=== PATIENT | female | born 1995 | race Caucasian/White ===

== ENCOUNTER 2019-03-11 08:57 | Inpatient (IN) ==
[2019-03-11] MEDS ORDERED: Naloxone 0.4 MG/ML INJ IVP PRN (10:01)
[2019-03-11] MEDS ORDERED: *HR* Nalbuphine 10 MG/ML AMPUL IVP PRN (10:01)
[2019-03-11] MEDS ORDERED: Metoclopramide 10 MG/2 ML VIAL IVP PRN (10:01)
[2019-03-11] MEDS ORDERED: Ondansetron 4 MG/2 ML VIAL IVP PRN (10:01)
[2019-03-11] MEDS ORDERED: Famotidine 20 MG/2 ML VIAL IVP PRN (10:01)
[2019-03-11] MEDS ORDERED: Ringers Solution, Lactated 1,000 ML IVC SCH (10:15)
[2019-03-11 11:01] LABS: Basophils # 0.1 K/mcL (0.0-0.2); Basophils % 0.4 %; Eosinophils % 0.2 %; Hematocrit 33.5 % (35.3-44.9); Hemoglobin 11.5 g/dL (11.5-15.4); Immature Granulocytes % 0.5 % (0-4); Lymphocytes # 2.5 K/mcL (0.6-4.6); Lymphocytes % 20.4 %; Mean Corpuscular HGB Conc 34.3 g/dL (31.6-35.5); Mean Corpuscular Hemoglobin 30.5 pg (28.0-33.3); Mean Corpuscular Volume 88.9 fL (83.0-100.0); Mean Platelet Volume 10.6 fL (9.4-12.4); Monocytes # 0.7 K/mcL (0.0-1.3); Monocytes % 6.1 %; Neutrophils # 8.8 K/mcL (1.6-8.9); Platelet Count 290 K/mcL (140-400); Red Blood Count 3.77 M/mcL (3.82-4.97); Red Cell Distribution Width 13.6 % (11.5-14.5); Segmented Neutrophils % 72.4 %; White Blood Count 12.2 K/mcL (4.3-11.1)
[2019-03-11 11:10] LABS: Amphetamine Screen,Urine Negative ng/mL (Cutoff=1000); Barbiturate Screen,Urine Negative ng/mL (Cutoff=200); Benzodiazepines Screen,Urine Negative ng/mL (Cutoff=200); Cannabinoid Screen,Urine Negative ng/mL (Cutoff = 50); Cocaine Screen,Urine Negative ng/mL (Cutoff= 300); Opiate Screen,Urine Negative ng/mL (Cutoff=300); Phencyclidine Screen,Urine Negative ng/mL (Cutoff=25)
[2019-03-11] MEDS ORDERED: Oxytocin 20 units/ LR 1000 mL 20 UNIT/1,000 ML BAG IVC SCH ×2 (12:00→17:50)
--- NOTE | 2019-03-11 12:27 | OB Labor Progress Note ---
Date of Encounter: 03/11/19 Time of Encounter: 12:26 Labor Progress Note - Subjective Subjective: Patient comfortable with contractions - Cervix Cervix: 6/70/-1 - Heart Tones Heart Tones: Baseline 150 Moderate variability Accelerations present 15x15 No decelerations FHR Category I - [place]: Contractions every 2-3 minutes - Interventions Interventions: AROM moderate amount of clear fluid - Plan Physician notified: No Plan: Continue plan as outlined by Dr. Rivas
--- NOTE | 2019-03-11 15:01 | OB/GYN Procedure Note ---
Delivery - Delivery Date: 03/11/19 Provider: Warner Rivas Intrapartum events: none Delivery induction: oxytocin Delivery augmentation: rupture of membranes Delivery monitor: external FHT, external uterine Anesthesia: none Quantitated Blood Loss: 200 - (s) Infant A Delivery Date: 03/11/19 Infant Delivery Time: 14:49 Presentation: vertex Position: OP Route of delivery: Gender: Female Viability: Viable at 1 minute: 8 at 5 mins: 9 Shoulder Dystocia: not encountered Placenta: spontaneous Cord: 3 umbilical vessels - Repair Episiotomy: none Laceration Description: None - Complications Delivery complications: none Delivery comments: Patient progressed to complete and pushing. Spontaneous vaginal delivery of a female infant in occiput posterior presentation. He was placed in the perineum easily. The rest the was then delivered with 1 push. cried immediately upon delivery. Cord was cut to cut. The placenta past nurse in attendance. Cord bloods obtained. Placenta was delivered spontaneously and intact. There are no cervical vaginal. A or perineal lacerations noted. Patient delivered a female weight is pending his mother skin the skin Apgars are 8 at 1 minute and 9 at 5 minutes. Estimated blood loss 200 mL - Disposition Mom disposition: stable in LDR disposition: stable in LDR
[2019-03-11] MEDS ORDERED: Acetaminophen 325 MG TABLET PO PRN (17:50)
[2019-03-11] MEDS ORDERED: Measles/Mumps/Rubella Vacc 0.5 ML VIAL SQ PRN (17:50)
--- NOTE | 2019-03-11 17:55 | OB/GYN History & Physical ---
Date of Encounter: 03/11/19 Time of Encounter: 12:00 Assessment and Plan (1) 39 weeks gestation of Current visit: Yes Status: Acute History of Present Illness Chief complaint: induction HPI: Ms. Pink is a 23 year old female who presented today for induction of labor. She is a at 39 weeks and 3 days. She is doing well without complaints. This patient has no known drug allergies. She is currently on vitamins. She has no chronic medical conditions. Surgical history is negative. She has no history of abnormal Pap smears, STDs or pelvic infections. She has no history of abnormal breast. Socially she denies tobacco, alcohol, illicit drug use. Obstetric history significant for 2 term vaginal deliveries uncomplicated. Family history is significant for thyroid disease, heart disease and hypertension. Past Med Surg Social Fam HX - Past Medical History Medical history: no medical history Psychiatric history: no psych history - Past Surgical History Surgical History: no surgical history - Social History Smoking Status: Former smoker Alcohol use: none Drug use: none - Family History Father Living Status: Still Living Hx Family Cardiac Disorders: No Hx Family Respiratory Disorders: No Hx Family Cancer: No Hx Family GI Disorders: No Hx Family Genitourinary Disorders: No Hx Family Endocrine Disorder: Yes (hyperthyroid) Hx Family Musculoskeletal Disorders: No Hx Family Neuromuscular Disorders: No Hx Family Neurologic Disorders: No Hx Family HEENT Disorders: No Hx Family Autoimmune Disorders: No Hx Family Reproductive Disorders: No Hx Family Psychosocial Disorders: No Hx Family Medical Disorders: No Obstetrical History - Pregnancies : 3 Para: 2 Term: 2 Livin Medications and Allergies Ferrous Sulfate [High Potency Iron] 1 tab PO DAILY 03/11/19 [History] Caplet 1 tab PO DAILY 03/11/19 [History] Allergy/AdvReac Type Severity Reaction Status Date / Time No Known Allergies Allergy Verified 03/11/19 10:01 Review of System OB All systems PM: reviewed and no additional remarkable complaints except as stated Exam - Constitutional Constitutional: well developed, well nourished, no acute distress, average body habitus - HEENT HEENT: EOMI, PERRL, Normocephaly - Neck Neck exam: full ROM - Lungs Respiratory exam: CTAB - Cardiovascular Cardiovascular exam: RRR - Abdomen Abdomen: Present: bowel sounds normal, gravid, non tender - Extremities Extremities exam: full ROM, normal inspection - Vagina Vagina: Present: normal moisture - Cervix Dilation: 3 Effacement: 50 Station: -2 - Uterus Uterus exam: Present: normal size Results Result Diagrams: 03/11/19 10:50 Abnormal lab results WBC 12.2 K/mcL (4.3-11.1) H 03/11/19 10:50 RBC 3.77 M/mcL (3.82-4.97) L 03/11/19 10:50 Hct 33.5 % (35.3-44.9) L 03/11/19 10:50 All other labs normal. - VTE Reasons for not Prescribing Prophylaxis: Treatment not Indicated - Low risk for VTE
[2019-03-12 07:04] LABS: Basophils # 0.1 K/mcL (0.0-0.2); Basophils % 0.3 %; Eosinophils % 0.2 %; Hemoglobin 11.8 g/dL (11.5-15.4); Immature Granulocytes % 0.5 % (0-4); Lymphocytes # 2.4 K/mcL (0.6-4.6); Lymphocytes % 13.2 %; Mean Corpuscular HGB Conc 34.7 g/dL (31.6-35.5); Mean Corpuscular Hemoglobin 30.1 pg (28.0-33.3); Mean Corpuscular Volume 86.7 fL (83.0-100.0); Mean Platelet Volume 10.7 fL (9.4-12.4); Monocytes % 5.5 %; Neutrophils # 14.6 K/mcL (1.6-8.9); Platelet Count 267 K/mcL (140-400); Red Blood Count 3.92 M/mcL (3.82-4.97); Red Cell Distribution Width 13.6 % (11.5-14.5); Segmented Neutrophils % 80.3 %; White Blood Count 18.2 K/mcL (4.3-11.1)
[2019-03-12 08:25] VITALS: BP 126/69
[2019-03-12] MEDS ORDERED: Prenatal Vit/FA 1 EACH TABLET PO SCH (09:00)
--- NOTE | 2019-03-12 09:14 | Discharge Summary ---
Date of Encounter: 03/12/19 Time of Encounter: 09:12 - Discharge Diagnosis (1) Vaginal delivery Priority: Primary Status: Acute Comments: Patient meeting day one milestones. Pain well-controlled with prescribed medications. Voiding without difficulty, tolerating regular diet, bleeding light. No bowel movement yet. Anticipate discharge today - Discharge Medications Prescriptions: New Acetaminophen [Tylenol] 650 mg PO Q6HR PRN tablet PRN Reason: Mild Pain Ibuprofen [Ibu] 600 mg PO Q6H PRN #60 tablet PRN Reason: Pain Continued Caplet 1 tab PO DAILY Discontinued Ferrous Sulfate [High Potency Iron] 1 tab PO DAILY Home Medications: Caplet 1 tab PO DAILY 03/11/19 [History] Acetaminophen [Tylenol] 650 mg PO Q6HR PRN tablet 03/12/19 [Rx] Ibuprofen [Ibu] 600 mg PO Q6H PRN #60 tablet 03/12/19 [Rx] Allergies/Adverse Reactions: Allergy/AdvReac Type Severity Reaction Status Date / Time No Known Allergies Allergy Verified 03/11/19 10:01 Data Procedures and tests throughout hospitalization: Laboratory Tests 03/11/19 03/11/19 03/12/19 10:50 10:50 06:00 WBC 12.2 H 18.2 H RBC 3.77 L 3.92 Hgb 11.5 11.8 Hct 33.5 L 34.0 L MCV 88.9 86.7 MCH 30.5 30.1 MCHC 34.3 34.7 RDW 13.6 13.6 Plt Count 290 267 MPV 10.6 10.7 Immature Gran % 0.5 0.5 Seg Neutrophils % 72.4 80.3 Lymphocytes % 20.4 13.2 Monocytes % 6.1 5.5 Eosinophils % 0.2 0.2 Basophils % 0.4 0.3 Neutrophils # 8.8 14.6 H Lymphocytes # 2.5 2.4 Monocytes # 0.7 1.0 Eosinophils # 0.0 0.0 Basophils # 0.1 0.1 Urine Opiates Screen Negative Ur Buprenorphine Scrn Negative Ur Barbiturates Screen Negative Ur Phencyclidine Scrn Negative Ur Amphetamines Screen Negative U Benzodiazepines Scrn Negative Urine Cocaine Screen Negative U Marijuana (THC) Screen Negative Ur Drug Screen Interp See Below Labs on day of discharge: Labs from last 24 hours 03/12/19 03/11/19 03/11/19 06:00 10:50 10:50 WBC 18.2 H 12.2 H RBC 3.92 3.77 L Hgb 11.8 11.5 Hct 34.0 L 33.5 L MCV 86.7 88.9 MCH 30.1 30.5 MCHC 34.7 34.3 RDW 13.6 13.6 Plt Count 267 290 MPV 10.7 10.6 Immature Gran % 0.5 0.5 Seg Neutrophils % 80.3 72.4 Lymphocytes % 13.2 20.4 Monocytes % 5.5 6.1 Eosinophils % 0.2 0.2 Basophils % 0.3 0.4 Neutrophils # 14.6 H 8.8 Lymphocytes # 2.4 2.5 Monocytes # 1.0 0.7 Eosinophils # 0.0 0.0 Basophils # 0.1 0.1 Urine Opiates Screen Negative Ur Buprenorphine Scrn Negative Ur Barbiturates Screen Negative Ur Phencyclidine Scrn Negative Ur Amphetamines Screen Negative U Benzodiazepines Scrn Negative Urine Cocaine Screen Negative U Marijuana (THC) Screen Negative Ur Drug Screen Interp See Below Date of admission: 03/11/19 08:57 Primary care physician: PCP NONE Consults: 03/11/19 17:50 Consult to Mask Designer [CONS] Routine Comment: Vaginal delivery, consult needed Discharging clinician: Yarelis Burris Anticipated date of discharge: 03/12/19 - Patient Status Disposition: Home, Self-Care Condition: Good Functional capacity at discharge: independent ambulation Overall status at discharge: patient is progressing back to baseline - Discharge Instructions Follow Up With: NONE,PCP [Primary Care Provider] - Warner Rivas MD [Partnered Physician] - - Diet and Activity Activity: resume usual activities as tolerated Diet: regular diet Hospital Course Reason for admission: induction of labor Delivery: Episiotomy: none Laceration: none Other procedures: none complications: none Discharge diagnosis: IUP at term delivered baby: female Hospital course: Delivery Date: 03/11/19 Provider: Warner Rivas Intrapartum events: none Delivery induction: oxytocin Delivery augmentation: rupture of membranes Delivery monitor: external FHT, external uterine Anesthesia: none Quantitated Blood Loss: 200 - (s) Infant A Delivery Date: 03/11/19 Delivery Time: 14:49 Presentation: vertex Position: OP Route of delivery: Gender: Female Viability: Viable at 1 minute: 8 at 5 mins: 9 Shoulder Dystocia: not encountered Placenta: spontaneous Cord: 3 umbilical vessels - Repair Episiotomy: none Laceration Description: None - Complications Delivery complications: none Delivery comments: Patient progressed to complete and pushing. Spontaneous vaginal delivery of a female in occiput posterior presentation. He was placed in the perineum easily. The rest the infant was then delivered with 1 push. Infant cried immediately upon delivery. Cord was cut to cut. The placenta past nurse in attendance. Cord bloods obtained. Placenta was delivered spontaneously and intact. There are no cervical vaginal. A or perineal lacerations noted. Patient delivered a female weight is pending his mother skin the skin Apgars are 8 at 1 minute and 9 at 5 minutes. Estimated blood loss 200 mL - Disposition Mom disposition: stable in LDR [place] disposition: stable in LDR Time Attestation: Total time spent providing and/or coordinating discharge services: Time Spent: Less than 30 minutes Exam - Constitutional Vitals: Temp Pulse Resp BP Pulse Ox 98.4 F 72 14 126/69 98 03/12/19 08:23 03/12/19 08:23 03/12/19 08:31 03/12/19 08:23 03/12/19 08:23 General appearance IM: A&O X 3, pleasant, no acute distress, answers questions appropriately - Respiratory Respiratory exam: Present: CTAB. Absent: respiratory distress - Cardiovascular Cardiovascular exam IM: Present: RRR, +S1, +S2. Absent: irregular rhythm - GI/Abdominal GI/Abdominal exam IM: normal bowel sounds, soft - Rectal Rectal exam: deferred - Uterine Tone: Firm Uterus Position: At Umbilicus, Midline - Extremities Exam Extremities exam IM: Present: full ROM, normal capillary refill, normal inspection. Absent: calf tenderness - Neurological Exam Neurological exam: alert, normal gait, oriented X3
== END 2019-03-12 16:04 | disposition home or self-care (01) | DRG 807 ==
LOC: 1NENULAB 08:57 → 1NENUOBS 17:49
PROVIDERS: ADMIT Obstetrics & Gynecology; ATTEND Obstetrics & Gynecology